=== PATIENT | female | born 1995 | race Caucasian/White ===

== ENCOUNTER 2016-07-20 21:16 | Emergency (ER) | payer BC ==
[2016-07-20 21:24] VITALS: BP 128/66; PULSE 69; RESP 16; TEMP 99.3
--- NOTE | 2016-07-20 21:43 | ED ---
Lower Extremity Injury HPI - General Chief Complaint: Extremity Injury, Lower Stated Complaint: Ankle Pain Time Seen by Provider: 07/20/16 21:25 Source: patient, RN notes reviewed Mode of arrival: wheelchair Limitations: no limitations - History of Present Illness Initial Comments: Patient is a 21-year-old female presents to the emergency room for evaluation of left ankle pain. Patient states she was walking around 5 PM this evening and twisted her ankle. Patient denies hearing/feeling a pop or snap. Patient has been having increasing pain throughout the day. Patient states she has pain and swelling on the lateral portion of her ankle. Patient denies any previous injuries to her left ankle. Patient states took ibuprofen earlier today with slight relief in symptoms. Patient denies numbness or tingling in her toes. Patient denies any other injuries during incident. - Related Data Home Medications Medication Instructions Recorded Confirmed No Known Home Medications [No 07/20/16 07/20/16 Known Home Medications] Allergies Allergy/AdvReac Type Severity Reaction Status Date / Time No Known Allergies Allergy Verified 07/20/16 21:24 Review of Systems ROS Statement: Those systems with pertinent positive or pertinent negative responses have been documented in the HPI. ROS Other: All systems not noted in ROS Statement are negative. Past Medical History Past Medical History: No Reported History History of Any Multi-Drug Resistant Organisms: None Reported Past Surgical History: Adenoidectomy Additional Past Surgical History / Comment(s): tubes bilat ears Past Psychological History: No Psychological Hx Reported Smoking Status: Current every day smoker Past Alcohol Use History: Occasional Past Drug Use History: None Reported General Exam - General Exam Comments Initial Comments: sitting in exam room, no acute distress. Limitations: no limitations General appearance: alert, in no apparent distress Head exam: Present: atraumatic, normocephalic, normal inspection Eye exam: Present: normal appearance ENT exam: Present: normal exam Neck exam: Present: normal inspection Respiratory exam: Absent: respiratory distress Left Ankle exam: Present: tenderness (lateral malleolus), swelling (mild swelling over lateral malleolus). Absent: full ROM (limited flexion and extension secondary to pain) Foot/Toe exam: Present: normal inspection, full ROM. Absent: tenderness Neurovascular tendon exam: Absent: pulse deficit (2+ dorsal pedal and posterior to the pulses), abnormal cap refill (capillary refill less than 2 seconds) Back exam: Present: normal inspection Neurological exam: Present: alert, oriented X3, CN II-XII intact Psychiatric exam: Present: normal affect, normal mood Skin exam: Present: warm, dry, intact, normal color. Absent: rash Course Vital Signs 07/20/16 21:20 Temperature 99.3 F Pulse Rate 69 Respiratory 16 Rate Blood Pressure 128/66 O2 Sat by Pulse 97 Oximetry Medical Decision Making - Medical Decision Making patient is a 21-year-old female presents to the emergency room for evaluation left ankle pain. Left ankle/foot x-ray negative for any acute fractures or dislocations. Patient placed in ankle stirrup and advised to follow-up with primary care provider if symptoms are not improving in 7-10 days. Patient states she has crutches at home. Patient states she understands everything that was discussed with her. Return parameters discussed. - Radiology Data Radiology results: report reviewed, image reviewed Disposition Clinical Impression: Left ankle sprain Disposition: HOME SELF-CARE Condition: Good Instructions: Ankle Sprain (ED) Additional Instructions: Rest, elevate and ice on and off for 10-15 minutes for the next 24-48 hours. Use crutches for the next 1-2 days. Take Tylenol or Motrin as needed for pain. Please follow-up with primary care provider in 7-10 days if symptoms are not improving. If new symptoms develop or symptoms worsen, please return to the ER. Referrals: Todd Winter DO [Primary Care Provider] - 1-2 days Time of Disposition: 22:10
--- NOTE | 2016-07-20 22:07 | XR ---
EXAMINATION TYPE: XR ankle complete 3 views LT, XR foot complete 3 views LT DATE OF EXAM: 07/20/2016 9:57 PM COMPARISON: NONE HISTORY: 21-year-old female rolled ankle, ankle and foot pain. FINDINGS: Ankle: The ankle mortise is congruent with preservation of the distal tibiofibular overlap. Talar dome is in tact. Subtalar joint align. Suboptimal delineation to the Achilles tendon. No acute fracture or dislo cation. Foot: No acute fracture, subluxation, or dislocation. There is chronic appearing truncation of the tuft of the great toe possibly congenital or due to old trauma/injury. IMPRESSION: Ankle and foot without acute osseous abnormality seen.
== END 2016-07-20 22:21 | disposition home or self-care (01) ==
LOC: EC 21:16
DX: S93.402A Sprain of unspecified ligament of left ankle, initial encounter (principal); F17.200 Nicotine dependence, unspecified, uncomplicated; X50.1XXA Overexertion from prolonged static or awkward postures, initial encounter; Y93.01 Activity, walking, marching and hiking
CPT/HCPCS: 73610; 73630; 99283; L4350

== ENCOUNTER → 2023-09-10 | Outpatient (CLI) | payer BC ==
--- NOTE | 2023-09-10 21:42 | US ---
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 0.8 X 0.6 x 0.7 cm, mid, solid or almost completely solid, hypoechoic nodule, which is wider verito n tall, with ill-defined margins, without echogenic foci. Prior size: no previous LEFT: # of nodules measured on left: 1. 0.7 X 0.5 x 0.6 cm, mid, mixed cystic and solid, hypoechoic nodule, which is wider than tall, wi th ill-defined margins, without echogenic foci. Prior size: no previous ISTHMUS: # of nodules measured in the isthmus: Bilateral subcentimeter nodules with largest described above Bilateral neck scanned, no evidence of lymphadenopathy. IMPRESSION: 1 Subcentimeter nodules
== END | disposition home or self-care (01) ==
LOC: RADUSWWP 15:17
PROVIDERS: ATTEND Family Medicine
DX: E04.2 Nontoxic multinodular goiter (principal)
CPT/HCPCS: 76536

== ENCOUNTER → 2024-09-19 | Outpatient (CLI) | payer BC ==
[2024-09-20 02:17] LABS: Basophils # (A) 0.06 X 10*3/uL (0.00-0.10); Basophils % (A) 0.4 %; Eosinophils # (A) 0.45 X 10*3/uL (0.04-0.35); Eosinophils % (A) 3.2 %; HCT 38.3 % (37.2-46.3); HGB 12.2 g/dL (12.0-15.0); Immature Grans, Automated 0.40 %; Lymphocytes # (A) 2.86 X 10*3/uL (0.90-5.00); Lymphocytes % (A) 20.4 %; MCH 26.9 pg (27.0-32.0); MCHC 31.9 g/dL (32.0-37.0); MCV 84.5 FL (80.0-97.0); Monocytes # (A) 0.69 X 10*3/uL (0.20-1.00); Monocytes % (A) 4.9 %; NRBC Per 100 WBC 0 X 10*3/uL (0.00-0.01); Neutrophils # (A) 9.89 X 10*3/uL (1.80-7.70); Neutrophils % (A) 70.7 %; Platelet Count 261 X 10*3/uL (140-440); RBC 4.53 X 10*6/uL (4.10-5.20); RDW 14.6 % (11.5-14.5); WBC 14.00 X 10*3/uL (4.50-10.00)
[2024-09-20 02:53] LABS: ALT 14 U/L (8-44); AST 17 U/L (13-35); Albumin 3.2 g/dL (3.8-4.9); Albumin/Globulin Ratio 1.78 Ratio (1.60-3.17); Alkaline Phosphatase 97 U/L (41-126); Anion Gap 10.20 mmol/L (4.00-12.00); BUN/Creat Ratio 12.67 Ratio (12.00-20.00); Blood Urea Nitrogen 7.6 mg/dL (9.0-27.0); Calcium 8.0 mg/dL (8.7-10.3); Carbon Dioxide 20.8 mmol/L (21.6-31.8); Chloride 106 mmol/L (96-109); Globulin 1.8 g/dL (1.6-3.3); Glucose 74 mg/dL (70-110); HCG,Quantitative Serum 6783.0 mIU/mL (0.0-6.0); Potassium 4.5 mmol/L (3.5-5.5); Sodium 137 mmol/L (135-145); Total Protein 5.0 g/dL (6.2-8.2)
== END | disposition home or self-care (01) ==
LOC: LABWHC1 15:56
PROVIDERS: ATTEND Physician Assistant
DX: Z32.00 Encounter for pregnancy test, result unknown (principal)
CPT/HCPCS: 36415; 80053; 84702; 85025